=== PATIENT | female | born 1970 | race African-American/Black ===

== ENCOUNTER 2016-07-27 04:33 | Emergency (ER) | payer BC ==
--- NOTE | ~2016-07-27 | CT4 ---
[facility] A Service of [facility] & [facility] RADIOLOGY TEXT RESULTS PATIENT: CHRISTINE WALLACE LOCATION: [facility] : 70 UNIT #: [id number] AGE: [address]: Jonathon Maria MD SEX: F ORDER DR: [id number] [facility] [address] [place], [place] [address] [id number] MR#: [id number] Acc #: [id number] NAME: CHRISTINE WALLACE : 1970 SEX: F STUDY DATE/TIME: 07/27/2016 05:08 UNIT: [facility] ROOM: STUDY DESCRIPTION: CT Abd and Pelv Wo Cont Attending Physician: Jonathon Maria M.D. Ordering Physician: Jonathon Maria M.D. Primary Care Physician: Primary Care Physician No MEDICAL IMAGING REPORT This report is preliminary unless electronic signature is present EXAM Abdomen and pelvis CT 07/27/2016 05:08 INDICATION Left flank pain since 02:30 this morning with associated nausea. Pain rates 8/10. TECHNIQUE Axial images were obtained through the abdomen and pelvis without the administration of contrast. Multiplanar reformats were obtained. No comparison. This CT examination was performed with one or more of the following radiation dose reduction techniques: automatic exposure control, adjustment of mA and/or kV according to patient size, and iterative reconstruction. FINDINGS ABDOMEN: Lung bases are clear. Gallbladder surgically absent. There is mild left hydronephrosis secondary to a 3 mm stone at the left ureterovesical junction. There is a small nonobstructing stone in the upper pole of the right kidney measuring 2 mm in size. The unenhanced solid organs are otherwise normal. The unopacified GI tract is normal. PELVIS: The appendix is normal. The remainder of the unopacified GI tract is normal as well. The bladder is normal. Bilateral Essure devices are present in the fallopian tubes. IMPRESSION 1. Mild left hydronephrosis secondary to a 3 mm stone at the left ureterovesical junction. 2. Tiny nonobstructing stone in the right kidney. 3. Status post cholecystectomy and Essure device placement. 4. Normal unopacified GI tract, including the appendix. STS. [facility] A Service of [facility] & [facility] RADIOLOGY TEXT RESULTS PATIENT: CHRISTINE WALLACE LOCATION: [facility] : 70 UNIT #: [id number] AGE: [address]: Jonathon Maria MD SEX: F ORDER DR: Dictated by... Ganesh Beasley Jr., M.D. THIS IS AN ELECTRONICALLY VERIFIED REPORT Ganesh Beasley Jr., M.D. at 07/28/2016 6:00 AM TANIA/lupe TD: 07/27/2016 07:14 JOB #: [id number] MEDICAL IMAGING REPORT Page 1 of 1 COPY
[2016-07-27 05:32] LABS: BASOPHIL# 0.1 X10e3 (0-0.3); BASOPHIL% 1.1 % (0-2.5); EOSINOPHIL# 0.1 X10e3 (0-0.7); EOSINOPHIL% 1.1 % (0.0-7.0); HEMATOCRIT 39.6 % (35.0-45.0); HEMOGLOBIN 12.7 gm/dL (12.0-16.0); LYMPHOCYTE# 1.7 X10e3 (1.0-3.5); MEAN CELL VOLUME 82.4 FL (83-96); MEAN CORPUSCULAR HEMOGLOBIN 26.6 PG (28-34); MEAN CORPUSCULAR HGB CONC 32.2 g/dL (30-36); MEAN PLATELET VOLUME 9.6 FL (6.5-11.5); MONOCYTE# 0.5 X10e3 (0-1.0); MONOCYTE% 6.9 % (3.0-12.0); NEUTROPHIL# 4.5 X10e3 (1.5-7.1); NEUTROPHIL% 65.9 % (40-75); PLATELET COUNT 327 X10e3 (140-420); RED CELL DISTRIBUTION WIDTH 13.6 % (11.0-15.5); WHITE BLOOD COUNT 6.9 X10e3 (4.0-10.5)
[2016-07-27 05:35] LABS: DIFF IND NO
[2016-07-27 06:02] LABS: ALBUMIN SERUM 3.9 g/dL (3.5-5.0); BILIRUBIN, DIRECT 0.1 mg/dL (0.0-0.2); BILIRUBIN,INDIRECT 0.7 mg/dL (0.0-0.9); BILIRUBIN,TOTAL 0.8 mg/dL (0.2-2.0); CALCIUM SERUM 9.3 mg/dL (8.4-10.2); CREATININE SERUM 0.8 mg/dL (0.6-1.4); GLOM FILT RATE Estimated 89.1 mL/min (>60); POTASSIUM 4.2 mmol/L (3.5-5.1); PROTEIN TOTAL SERUM 7.3 g/dL (6.0-8.3)
[2016-07-27 06:20] LABS: URINE SOURCE CLEAN CATCH
[2016-07-27 06:25] LABS: URINE APPEARANCE CLEAR; URINE BILIRUBIN NEG (NEG); URINE BLOOD NEG (NEG); URINE COLOR YELLOW; URINE GLUCOSE >1000 MG/DL (NEG); URINE KETONE TRACE (NEG); URINE LEUKOCYTE ESTERASE NEG (NEG); URINE NITRATE NEG (NEG); URINE PH 6.5 (5-8); URINE PROTEIN NEG (NEG); URINE SPECIFIC GRAVITY 1.024 (1.003-1.035)
[2016-07-27 06:31] LABS: CULTURE INDICATED? NO
== END 2016-07-27 06:55 | disposition home or self-care (01) ==
LOC: CED 04:33
PROVIDERS: Emergency Medicine
DX: N13.2 Hydronephrosis with renal and ureteral calculous obstruction (principal); E11.9 Type 2 diabetes mellitus without complications; Z90.49 Acquired absence of other specified parts of digestive tract; Z98.890 Other specified postprocedural states
CPT/HCPCS: 36415; 74176; 80048; 80076; 81003; 82947; 83690; 85025; 96374; 96375; 99284; J1885; J2270; J2405